=== PATIENT | female | born 1950 | race Caucasian/White ===

== ENCOUNTER 2017-09-07 05:00 | Emergency (ER) | payer MEDICARE, OTHER ==
[~2017-09-07] VITALS: Ht 162.6 cm; Wt 104.5 kg
[2017-09-07 05:03] VITALS: BP 134/70; PULSE 72; RESP 18; TEMP 98.1; O2SAT 93
--- NOTE | 2017-09-07 05:23 | PD ---
HPI Chief Complaint: Edema Time Seen by Provider: 05:23 Travel History International Travel<30 days: No Contact w/Intl Traveler<30days: No Traveled to known affect area: No History of Present Illness HPI The patient is a 67 year old female who presents to the [facility] emergency department with a history of posterior elbow pain that began on Fred and has been gradually getting worse with time. She denies any known trauma. She reports that the posterior elbow is swollen and the area of swelling seems to be getting bigger. She reports that she has been using a heating pad with some relief of the pain. She reports that the pain is worse with extension of her elbow and pronation of the forearm. She is concerned about the possibility of a blood clot involving the arm as she was recently diagnosed with a DVT in the left lower extremity. She reports that she is on Xarelto and has been taking it as prescribed. She is visiting from out of town. She is currently on vacation. On review of systems, she denies any recent fevers, IV access in that extremity, cough, congestion, neck pain, chest pain, shortness of breath, abdominal pain, vomiting, diarrhea, urinary symptoms , or neurologic symptoms. She denies having any wounds on her right arm. [facility] Past Medical History Narrative Medical The patient's past medical history is significant for on on 07/01/17 being diagnosed with 3 blood clots in the left calf and placed on Xarelto, history of lymphedema of the left leg, hypertension, hyperlipidemia, depression. Depression: Yes High Cholesterol: Yes Diminished Hearing: No Deep Vein Thrombosis: Yes (X3) Hypertension: Yes Medical other: Yes (LYMPHEDEMA) Immunizations Current: Yes Past Surgical History Narrative Surgical The patient's past surgical history is significant for left knee sx on 06/04, right knee sx x2, hysterectomy. Hysterectomy: Yes (FULL) Social History Alcohol Use: Yes (WINE 1-2 GLASSES) Tobacco Use: No Substance Use: No Allergies-Medications (Allergen,Severity, Reaction): Coded Allergies: No Known Allergies (Unverified , 09/07/17) Reported Meds & Prescriptions Reported Meds & Active Scripts Active Reported Multi Vitamin Daily (Multiple Vitamin) 1 Tab Tab 1 Tab PO DAILY Aspirin 325 Mg Tab 325 Mg PO ONCE Fish Oil 1,000 mg Softgel ([place]-3/Dha/Epa/Fish Oil) 1,000 Mg (120 Mg-180 Mg) Capsule 1,400 Mg PO DAILY Norvasc (Amlodipine Besylate) 2.5 Mg Tab 2.5 Mg PO DAILY Lipitor (Atorvastatin Calcium) 20 Mg Tab 20 Mg PO HS Trazodone (Trazodone HCl) 100 Mg Tablet 200 Mg PO HS Losartan (Losartan Potassium) 100 Mg Tab 100 Mg PO HS Xarelto (Rivaroxaban) 20 Mg Tab 20 Mg PO DAILY Glucosamine-Chondroitin 500-400 Mg Tab 6 Tab PO DAILY Citracal + D3 Maximum (Calcium Citrate-Vitamin D) 315-250 Mg-Unit Tab 1 Tab PO BID Coq-10 (Coenzyme Q10 (Ubidecarenone)) 400 Mg Cap 1 Tab PO DAILY Synthroid (Levothyroxine Sodium) 25 Mcg Tab 25 Mcg PO DAILY Paxil (Paroxetine HCl) 10 Mg Tab 40 Mg PO DAILY Buspirone (Buspirone HCl) 15 Mg Tab 15 Mg PO BID Protonix (Pantoprazole Sodium) 40 Mg Tab 40 Mg PO BID Narrative Medication Xarelto, synthroid, protonix, paxil, buspar, losartan, Trazadone, lipitor, Norvasc, Vyvance Review of Systems Except as stated in HPI: all other systems reviewed are Neg General / Constitutional: No: Fever Eyes: No: Visual changes HENT: No: Headaches Cardiovascular: No: Chest Pain or Discomfort Respiratory: No: Shortness of Breath Gastrointestinal: No: Abdominal Pain Genitourinary: No: Dysuria Musculoskeletal: Positive: Myalgias, Arthralgias, Limited ROM, Edema, Pain Skin: No Rash Neurologic: No: Weakness Psychiatric: No: Depression Endocrine: No: Polydipsia Hematologic/Lymphatic: No: Easy Bruising Physical Exam Narrative General: The patient is a well-developed well-nourished female in no acute distress. Head and Neck exam: Head is normocephalic atraumatic. Eyes: EOMI, pupils are equal round and reactive to light. Nose: Midline septum with pink mucous membranes Mouth: Dentition unremarkable. Moist mucus membranes. Posterior oropharynx is not erythematous. No tonsillar hypertrophy. Uvula midline. Airway patent. Neck: No palpable lymphadenopathy. No nuchal rigidity. No thyromegaly. Cardiovascular: Regular rate and rhythm without murmurs, gallops, or rubs. Lungs: Clear to auscultation bilaterally. No wheezes, rhonchi, or rales. Abdomen: Soft, without tenderness to palpation in all 4 quadrants of the abdomen. No guarding, rebound, or rigidity. Normal bowel sounds are audible. No tenderness on palpation of McBurney's point. Extremities: No clubbing or cyanosis. The patient has trace pedal edema of the left leg compared to the right related to chronic lymphedema of the left leg. 2+ pulses in all 4 extremities. No calf tenderness on palpation. The area of interest otherwise is the right upper extremity, along the posterior aspect of the elbow the patient is noted to have slight erythema of the skin overlying the distal aspect of the humerus posteriorly with warmth on palpation and swelling noted. The patient is also noted to have some swelling along the posterior aspect of the elbow overlying the proximal ulna. There is no fluctuance. There is no step-off or crepitus. There is no pointing. The patient is able to fully flex her elbow, however extension is limited at 160. The patient has pain with full pronation of the right forearm. No pain with supination of her forearm. Back: No spinous process tenderness to palpation. No costovertebral angle tenderness to palpation. Neurologic Exam: Grossly nonfocal. Skin Exam: No rash noted. Intact skin that is warm and dry. Data Data Last Documented VS Vital Signs Date Time Temp Pulse Resp B/P (MAP) Pulse Ox O2 Delivery O2 Flow Rate FiO2 09/07/17 05:03 98.1 72 18 134/70 (91) 93 Orders Orders Us Arm Venous Doppler (09/07/17 05:33) Complete Blood Count With Diff (09/07/17 05:41) Comprehensive Metabolic Panel (09/07/17 05:41) Prothrombin Time / Inr (Pt) (09/07/17 05:41) Act Partial Throm Time (Ptt) (09/07/17 05:41) C-Reactive Protein (Crp) (09/07/17 05:41) Magnesium (Mg) (09/07/17 05:41) Iv Access Insert/Monitor (09/07/17 05:41) Ecg Monitoring (09/07/17 05:41) Oximetry (09/07/17 05:41) Morphine Inj (Morphine Inj) (09/07/17 05:45) Ondansetron Inj (Zofran Inj) (09/07/17 05:45) Labs Laboratory Tests Test 09/07/17 05:45 White Blood Count 5.9 TH/MM3 Red Blood Count 3.82 MIL/MM3 Hemoglobin 12.2 GM/DL Hematocrit 36.3 % Mean Corpuscular Volume 95.0 FL Mean Corpuscular Hemoglobin 32.0 PG Mean Corpuscular Hemoglobin Concent 33.7 % Red Cell Distribution Width 13.4 % Platelet Count 192 TH/MM3 Mean Platelet Volume 7.6 FL Neutrophils (%) (Auto) 65.4 % Lymphocytes (%) (Auto) 19.3 % Monocytes (%) (Auto) 13.4 % Eosinophils (%) (Auto) 1.5 % Basophils (%) (Auto) 0.4 % Neutrophils # (Auto) 3.9 TH/MM3 Lymphocytes # (Auto) 1.1 TH/MM3 Monocytes # (Auto) 0.8 TH/MM3 Eosinophils # (Auto) 0.1 TH/MM3 Basophils # (Auto) 0.0 TH/MM3 CBC Comment DIFF FINAL Differential Comment Prothrombin Time 11.4 SEC Prothromb Time International Ratio 1.0 RATIO Activated Partial Thromboplast Time 32.1 SEC Blood Urea Nitrogen 15 MG/DL Creatinine 0.73 MG/DL Random Glucose 102 MG/DL Total Protein 7.2 GM/DL Albumin 3.6 GM/DL Calcium Level 9.0 MG/DL Magnesium Level 2.1 MG/DL Alkaline Phosphatase 78 U/L Aspartate Amino Transf (AST/SGOT) 22 U/L Alanine Aminotransferase (ALT/SGPT) 34 U/L Total Bilirubin 0.4 MG/DL Sodium Level 140 MEQ/L Potassium Level 4.5 MEQ/L Chloride Level 105 MEQ/L Carbon Dioxide Level 28.0 MEQ/L Anion Gap 7 MEQ/L Estimat Glomerular Filtration Rate 79 ML/MIN C-Reactive Protein 1.53 MG/DL MDM Medical Decision Making Medical Screen Exam Complete: Yes Emergency Medical Condition: Yes Medical Record Reviewed: Yes Interpretation(s) Last Impressions Upper Extremity Ultrasound 09/07/1729 Signed Impressions: Service Date/Time: Thursday, September 07, 2017 06:06 - CONCLUSION: 1. No evidence of deep venous thrombosis. Tj Baltazar MD Differential Diagnosis DVT, versus bursitis, versus cellulitis, versus gout, versus septic arthritis Narrative Course During the course of the patients emergency department visit, the patients history, examination, and differential diagnosis were reviewed with the patient. The patient was placed on a monitor technician with oximetry and frequent blood pressure monitoring. The patient had IV access obtained and blood work sent for analysis. An ultrasound of the right upper extremity was ordered. The patient was initially provided morphine for pain, Zofran for nausea. The patients laboratory studies were reviewed and remarkable for a white count of 5.9, hemoglobin 12.2, platelets 192 with 13.4 monocytes, CMP is remarkable for a GFR 79, C-reactive protein 1.53, PT 11.4, PTT 32.1. Radiology studies were reviewed and remarkable for an ultrasound of the right arm that shows no evidence of DVT. The patient will be discharged home with a prescription for a medication, antibiotic for suspected cellulitis. The patient is resting comfortably and feels better, is alert and in no distress. The patients results and examination findings were discussed with the patient. The repeat examination is unremarkable and benign. The history, exam, diagnostic testing, and current condition do not suggest any significant pathology to warrant further testing, continued ED treatment, admission, or surgical evaluation at this point. The vital signs have been stable. The patient does not have uncontrollable pain, intractable vomiting, or other significant symptoms. The patient's condition is stable and appropriate for discharge. The patient will pursue further outpatient evaluation with a primary care physician or other designated or consulting physician as indicated in the discharge instructions. The patient expressed understanding and was agreeable with this plan. Diagnosis Primary Impression: Cellulitis Qualified Codes: L03.113 - Cellulitis of right upper limb Additional Impression: Right elbow pain Referrals: Primary Care Physician 1 week Patient Instructions: Cellulitis (ED), General Instructions Med/Other Pt SpecificInfo: Prescription(s) given Scripts Hydrocodone-Acetaminophen (Lortab) 5-325 Mg Tab 1 TAB PO Q6H Y for PAIN, #12 TAB 0 Refills Prov: Betzaida Nguyen MD 09/07/17 Cephalexin (Keflex) 500 Mg Capsule 500 MG PO Q6H for Infection, #40 CAP 0 Refills Prov: Betzaida Nguyen MD 09/07/17 Disposition: 01 DISCHARGE HOME Condition: Stable Betzaida Nguyen MD Sep 07, 2017 05:23
[2017-09-07] MEDS ORDERED: MORPHINE SULFATE 4 MG/ML INJ IV PUSH ONE (05:45)
[2017-09-07] MEDS ORDERED: ONDANSETRON HCL 4 MG/2 ML VIAL IV PUSH ONE (05:45)
[2017-09-07] MEDS ORDERED: GLUC500T4 PO (05:50)
[2017-09-07] MEDS ORDERED: NORV2.5T PO (05:50)
[2017-09-07] MEDS ORDERED: SYNT25TA PO (05:50)
[2017-09-07] MEDS ORDERED: BUSP15TA PO (05:50)
[2017-09-07] MEDS ORDERED: OMEG100046 PO (05:50)
[2017-09-07] MEDS ORDERED: ASPI-183 PO (05:50)
[2017-09-07] MEDS ORDERED: PAXI10TA8 PO (05:50)
[2017-09-07] MEDS ORDERED: LOSA100T PO (05:50)
[2017-09-07] MEDS ORDERED: COEN400C PO (05:50)
[2017-09-07] MEDS ORDERED: CITRTAB7 PO (05:50)
[2017-09-07] MEDS ORDERED: MULT1TAB46 PO (05:50)
[2017-09-07] MEDS ORDERED: PROT40TA PO (05:50)
[2017-09-07] MEDS ORDERED: TRAZ100T10 PO (05:50)
[2017-09-07] MEDS ORDERED: LIPI20TA PO (05:50)
[2017-09-07] MEDS ORDERED: XARE20TA PO (05:50)
[2017-09-07 06:02] LABS: AUTOMATED NEUTROPHIL # 3.9 TH/MM3 (1.8-7.7); BASOPHIL % 0.4 % (0.0-2.0); EOSINOPHIL # 0.1 TH/MM3 (0-0.4); EOSINOPHIL % 1.5 % (0.0-4.0); HEMATOCRIT 36.3 % (35.0-46.0); HEMO FLAGS DIFF FINAL; LYMPH % 19.3 % (9.0-44.0); LYMPHOCYTE # 1.1 TH/MM3 (1.0-4.8); MEAN CORPUSCULAR HGB CONC 33.7 % (32.0-36.0); MONO % 13.4 % (0.0-8.0); NEUT % 65.4 % (16.0-70.0); PLATELET COUNT 192 TH/MM3 (150-450); RED BLOOD COUNT 3.82 MIL/MM3 (4.00-5.30); RED CELL DISTRIBUTION WIDTH 13.4 % (11.6-17.2); WHITE BLOOD COUNT 5.9 TH/MM3 (4.0-11.0)
[2017-09-07 06:10] LABS: APTT (PATIENT) 32.1 SEC (24.3-30.1); PROTHROMBIN TIME - PATIENT 11.4 SEC (9.8-11.6)
--- NOTE | 2017-09-07 06:33 | RADRPT ---
EXAM DATE/TIME: 09/07/2017 06:06 [facility] COMPARISON: No previous studies available for comparison. INDICATIONS : Right arm swelling. MEDICAL HISTORY : Deep venous thrombosis. Hypercholesterolemia. Hypertension. Lymphedema. SURGICAL HISTORY : Hysterectomy. Bilateral knee replacement. ENCOUNTER: Initial ACUITY: 2 day PAIN SCORE: 3/10 LOCATION: Right arm. FINDINGS: There is spontaneous flow documented in the brachial, basilic, cephalic, axillary, and subclavian vei ns. The vessels are compressible and augmentation response is documented. No filling defects are se en. The flow is phasic with respiration. Direction of flow in the jugular vein is caudal. CONCLUSION: 1. No evidence of deep venous thrombosis. Tj Baltazar MD on September 07, 2017 at 6:32 Board Certified Radiologist. This report was verified electronically.
[2017-09-07 06:39] LABS: ALT (GPT) 34 U/L (10-53); ANION GAP 7 MEQ/L (5-15); AST (GOT) 22 U/L (15-37); BLOOD UREA NITROGEN 15 MG/DL (7-18); CHLORIDE 105 MEQ/L (98-107); GLOMERULAR FILTRATION RATE 79 ML/MIN (>89); MAGNESIUM 2.1 MG/DL (1.5-2.5); POTASSIUM 4.5 MEQ/L (3.5-5.1); SODIUM (NA) 140 MEQ/L (136-145)
[2017-09-07 06:41] LABS: ALKALINE PHOSPHATASE 78 U/L (45-117); TOTAL BILIRUBIN ADULT 0.4 MG/DL (0.2-1.0)
[2017-09-07] MEDS ORDERED: HYDR-3533 PO (06:55)
[2017-09-07] MEDS ORDERED: CEPH-460 PO (06:55)
[2017-09-07] MEDS ORDERED: PERC5TAB12 PO (07:10)
== END 2017-09-07 07:21 | disposition home or self-care (01) ==
LOC: NEPE 05:00
DX: L03.113 Cellulitis of right upper limb (principal); M25.521 Pain in right elbow; I89.0 Lymphedema, not elsewhere classified; I10 Essential (primary) hypertension; E78.00 Pure hypercholesterolemia, unspecified; Z79.01 Long term (current) use of anticoagulants; Z79.899 Other long term (current) drug therapy; Z86.718 Personal history of other venous thrombosis and embolism
CPT/HCPCS: 80053; 83735; 85025; 85610; 85730; 86140; 93971; 96374; 96375; 99285; J2270; J2405